=== PATIENT | male | born 1935 | race Caucasian/White ===

== ENCOUNTER 2017-04-24 13:17 | Emergency (ER) | payer MEDICARE ==
[~2017-04-24] VITALS: Ht 175.3 cm; Wt 79.4 kg
[2017-04-24 13:49] LABS: BASOPHILS ABSOLUTE AUTO 0.05 K/mm3 (0.00-0.23); BASOPHILS PERCENT AUTO 1 % (0-2); EOSINOPHILS ABSOLUTE AUTO 0.06 K/mm3 (0.00-0.68); EOSINOPHILS PERCENT AUTO 1 % (0-6); Hematocrit 36.3 % (37.0-53.0); Hemoglobin 11.9 g/dL (13.5-17.5); IMMATURE GRAN ABSOLUTE AUTO 0.05 K/mm3 (0.00-0.10); IMMATURE GRAN PERCENT AUTO 1 % (0-1); LYMPHOCYTES ABSOLUTE AUTO 1.17 K/mm3 (0.84-5.20); LYMPHOCYTES PERCENT AUTO 15 % (21-46); MONOCYTES PERCENT AUTO 12 % (4-13); Mean Corpuscular HGB Conc 32.8 g/dL (31.5-36.5); Mean Corpuscular Volume 79 fL (80-100); NEUTROPHILS ABSOLUTE AUTO 5.55 K/mm3 (1.96-9.15); NEUTROPHILS PERCENT AUTO 71 % (41-73); Platelet Count 102 K/mm3 (150-400); RDW Coefficient Variation 23.3 % (11.7-14.2); RDW Standard Deviation 66.4 fL (35.1-46.3); Red Blood Cell Count 4.57 M/mm3 (4.30-5.90); White Blood Cell Count 7.78 K/mm3 (4.00-11.30)
[2017-04-24 14:12] LABS: International Normalized Ratio 3.85; Prothrombin Time Results 41.7 Sec (9.7-11.5)
[2018-01-24] MEDS ORDERED: POTCHL20ER PO (17:08)
[2018-01-24] MEDS ORDERED: SPIR25 PO (17:08)
[2018-01-24] MEDS ORDERED: CLOP75 PO (17:09)
[2018-01-24] MEDS ORDERED: METO25 (17:09)
[2018-01-24] MEDS ORDERED: LISI5 PO (17:09)
[2018-01-24] MEDS ORDERED: TORSE20 PO (17:09)
[2018-01-24] MEDS ORDERED: WARF5 PO (17:09)
[2018-01-24] MEDS ORDERED: Omeprazole20 M1 (17:09)
[2018-01-24] MEDS ORDERED: ATOR80 PO (17:09)
[2018-01-24] MEDS ORDERED: LEVSOD50 PO (17:09)
== END 2017-04-24 14:50 | disposition home or self-care (01) ==
LOC: ER 13:17
PROVIDERS: Internal Medicine
DX: S01.01XA Laceration without foreign body of scalp, initial encounter (principal); I48.91 Unspecified atrial fibrillation; I50.9 Heart failure, unspecified; I25.2 Old myocardial infarction; W18.30XA Fall on same level, unspecified, initial encounter
CPT/HCPCS: 70450; 85025; 85610; 90471; 90714; 99284